=== PATIENT | female | born 1975 | race Caucasian/White ===

== ENCOUNTER → 2019-06-19 10:31 | Outpatient (CLI) | payer OTHER, SELFPAY ==
--- NOTE | 2019-06-19 10:42 | US_ITS ---
PROCEDURE: US ABDOMEN LIMITED CLINICAL INDICATION: BLOATING,ALTERED BOWEL UNCTION,ABD PAIN, NAUSEA COMPARISON: No exams were available for comparison FINDINGS: PANCREAS: Poorly demonstrated and may be better evaluated with CT if clinically desired LIVER: Fatty liver. No focal liver lesion. Appropriate direction of blood flow within the non dilated portal vein RIGHT KIDNEY: Unremarkable. Normal size and echogenicity. No hydronephrosis GALLBLADDER: No gallstones, gallbladder wall thickening, pericholecystic fluid, or biliary dilatation. IMPRESSION: 1. Unremarkable gallbladder ultrasound. 2. Fatty liver Dictated by: Beny Rojo MD 06/19/2019 12:49 Electronically signed by Beny Rojo MD in [facility] 06/19/2019 12:49
--- NOTE | 2019-06-19 10:52 | US_ITS ---
PROCEDURE: US TRANSVAGINAL CLINICAL INDICATION: RT OVARIAN CYST Right lower pelvic pain COMPARISON: No exams were available for comparison FINDINGS: Prior hysterectomy and left oophorectomy. Vaginal cuff has an unremarkable appearance. The right ovary is not clearly delineated. No obvious pelvic mass. IMPRESSION: Postsurgical changes from prior hysterectomy and left oophorectomy with nonvisualization of the right ovary. No pelvic mass or abnormal fluid collection apparent Dictated by: Beny Rojo MD 06/19/2019 12:47 Electronically signed by Beny Rojo MD in [facility] 06/19/2019 12:47
[2019-06-19 11:52] LABS: Basophils # 0.1 K/mm3 (0-0.2); Basophils % 0.7 % (0.1-2.0); Eosinophils # 0.3 K/mm3 (0.0-0.4); Eosinophils % 3.1 % (0.1-12.0); Hematocrit 45.5 % (37.0-47.0); Hemoglobin 15.3 g/dL (12.2-16.2); Lymphocytes # 2.6 K/mm3 (0.7-4.5); Lymphocytes % 27.3 % (10-50); Mean Corpuscular HGB Conc 33.6 g/dL (31.8-35.4); Mean Corpuscular Hemoglobin 31.3 pg (27.0-31.2); Mean Corpuscular Volume 93.2 fl (81-99); Mean Platelet Volume 8.4 fl (7.4-10.4); Monocytes # 0.4 K/mm3 (0.1-1.0); Monocytes % 4.7 % (1.7-9.3); Neutrophils # 6.1 K/mm3 (1.8-7.8); Neutrophils % 64.3 % (37.0-80.0); Platelet Count 351 K/mm3 (142-424); Red Blood Count 4.88 M/mm3 (4.20-5.40); Red Cell Distribution Width 12.9 % (11.5-17.5); White Blood Count 9.5 K/mm3 (4.8-10.8)
[2019-06-19 13:03] LABS: Alanine Aminotransferase 21 U/L (12-78); Albumin Level 3.7 gm/dL (3.4-5.0); Albumin/Globulin Ratio 1.2 (1.1-1.8); Alkaline Phosphatase 114 U/L (46-116); Amylase 61 U/L (25-115); Anion Gap 13.2 mEq/L (5-15); Aspartate Amino Transferase 11 U/L (15-37); Bilirubin,Total 0.4 mg/dL (0.2-1.0); Blood Urea Nitrogen 9 mg/dL (7-18); C-Reactive Protein 0.6 mg/dL (0.0-0.9); Calcium 8.7 mg/dL (8.5-10.1); Carbon Dioxide 26 mmol/L (21.0-32.0); Chloride 104 mmol/L (98-107); Creatinine,Serum 0.77 mg/dL (0.55-1.02); Estimated Glomerular Filt Rate 83 ml/min (>60); GFR (African American) 100 ML/MIN (>60); Globulin 3.1 gm/dl (1.3-3.2); Glucose 84 mg/dL (74-106); Lipase 145 u/L (73-393); Potassium 4.2 mmoL/L (3.5-5.1); Sodium 139 mmol/L (136-145); Total Protein,Serum 6.8 gm/dL (6.4-8.2)
== END ==
PROVIDERS: Visit Provider Nurse Practitioner Family
DX: R10.11 Right upper quadrant pain (principal); R19.4 Change in bowel habit; R14.0 Abdominal distension (gaseous); R11.0 Nausea; R10.84 Generalized abdominal pain; N83.201 Unspecified ovarian cyst, right side
CPT/HCPCS: 36415; 76705; 76830; 80053; 82150; 83690; 85025; 86140

== ENCOUNTER → 2019-07-01 10:06 | Outpatient (CLI) | payer OTHER, SELFPAY ==
--- NOTE | 2019-07-01 10:13 | NM_ITS ---
PROCEDURE: NM HEPATOBILIARY W PHARM CLINICAL INDICATION: ABD PAIN,NAUSEA COMPARISON: No exams were available for comparison TECHNIQUE: DOSE: 8.0 millicuries technetium 99 M Choletec administration FINDINGS: Homogeneous activity is present within the hepatic parenchyma. Activity is present in the gallbladder by 50 minutes. Activity is present in the small bowel by 10 minutes. The gallbladder ejection fraction is calculated to be 17 percent. CCK-The patient did not report pain or other symptoms during CCK infusion. IMPRESSION: No evidence of cholecystitis. Gallbladder dysfunction with abnormally low ejection fraction at 17 percent. Dictated by: Jacob Isbell 07/01/2019 12:58 Electronically signed by Jacob Isbell in [facility] 07/01/2019 12:58
--- NOTE | 2019-07-01 10:39 | HMH.ITSHM ---
Current Home Medications as stated by this patient Jyoti Eugene or employer relations representative. []NAPROXEN OCYCLOMINE INHALER
== END ==
PROVIDERS: PCP Family Medicine; Visit Provider Nurse Practitioner Family
DX: R10.11 Right upper quadrant pain (principal); R11.0 Nausea
CPT/HCPCS: 78227; A9537; J2805

== ENCOUNTER → 2019-10-14 10:39 | Outpatient (CLI) | payer OTHER, SELFPAY ==
[2019-10-14 08:42] VITALS: BMI 40.2
[2019-10-14 11:04] LABS: Basophils # 0.1 K/mm3 (0-0.2); Basophils % 1.1 % (0.1-2.0); Eosinophils # 0.3 K/mm3 (0.0-0.4); Eosinophils % 3.2 % (0.1-12.0); Hemoglobin 14.9 g/dL (12.2-16.2); Lymphocytes # 2.9 K/mm3 (0.7-4.5); Lymphocytes % 29.9 % (10-50); Mean Corpuscular HGB Conc 33.1 g/dL (31.8-35.4); Mean Corpuscular Hemoglobin 31.8 pg (27.0-31.2); Mean Corpuscular Volume 96.1 fl (81-99); Mean Platelet Volume 7.4 fl (7.4-10.4); Monocytes # 0.5 K/mm3 (0.1-1.0); Monocytes % 4.7 % (1.7-9.3); Neutrophils # 5.9 K/mm3 (1.8-7.8); Platelet Count 309 K/mm3 (142-424); Red Blood Count 4.68 M/mm3 (4.20-5.40); Red Cell Distribution Width 13.4 % (11.5-17.5); White Blood Count 9.6 K/mm3 (4.8-10.8)
[2019-10-14 13:29] LABS: Chloride 106 mmol/L (98-107); Potassium 4.3 mmoL/L (3.5-5.1); Sodium 138 mmol/L (136-145)
[2019-10-14 13:32] LABS: Alanine Aminotransferase 20 U/L (12-78); Albumin/Globulin Ratio 1.5 (1.1-1.8); Alkaline Phosphatase 97 U/L (38-126); Anion Gap 12.3 mEq/L (5-15); Aspartate Amino Transferase 21 U/L (14-36); Bilirubin,Total 0.4 mg/dl (0.2-1.3); Blood Urea Nitrogen 7 mg/dl (7-17); Carbon Dioxide 24 mmol/L (22.0-30.0); Creatinine Clearance Estimated 144 mL/min (50-200); Estimated Glomerular Filt Rate 79 ml/min (>60); GFR (African American) 95 ML/MIN (>60); Globulin 2.7 g/dL (1.3-3.2); Total Protein,Serum 6.7 g/dl (6.3-8.2)
[2019-10-14 13:33] LABS: Calcium 9.2 mg/dl (8.4-10.2); Glucose 90 mg/dl (74-100)
[2019-10-15 15:09] LABS: Covid-19 Nasal PCR Sendout Lex NOT DETECTED
== END ==
PROVIDERS: Visit Provider Surgery
DX: Z01.818 Encounter for other preprocedural examination (principal); K81.1 Chronic cholecystitis
CPT/HCPCS: 36415; 80053; 85025; U0003

== ENCOUNTER 2019-10-16 07:15 | Day surgery (SDC) | payer OTHER, SELFPAY ==
--- NOTE | 2019-10-13 13:29 | SUR.PREOP ---
10/13/19--PHONE CALL MADE TO PATIENT. PATIENT UNDERSTANDS THAT LAB WORK AND COVID TESTING NEEDS TO BE COMPLETED @ 1030 ON 10/14/19 PATIENT UNDERSTANDS IF LAB WORK AND COVID-19 TESTS ARE NOT COMPLETED BY 12PM ON THAT DATE, THE SURGERY SCHEDULED WILL BE CANCELLED AND RESCHEDULED FOR ANOTHER TIME.
[2019-10-14 14:00] VITALS: BMI 40.2
[2019-10-16] VITALS (20 sets, daily range): BP systolic 106–134; BP diastolic 61–78; PULSE 60–88; RESP 15–20; TEMP 36.6–43; O2SAT 92–100
--- NOTE | 2019-10-16 11:14 | P.PN_ITS ---
[facility] Anesthesia Checklist - Patient Identification Patient Identification: Arm Band, Verbal (Name & ) - Structural Data Admitted From: Home Planned Operative Procedure/s: Laparoscopic cholecystectomy Consent for Planned Operative Procedure(s) Verified: Yes Verified Documents: Surgical Consent, History and Physical - NPO Status Verified Time NPO: 00:00 - Chart Verification Results Verified: CBC (Covid 19 negative), BMP - Additional verifications Anesthesia Reactions: Yes (panic and anxiety upon waking) Hx Blood Transfusions: No Blood Transfusion Reaction: No - Airway Assessment C-Spine Mobility Assessed: Yes TMJ Mobility Assessed: Yes Dentition: Dentures-good fit (Removed) - Neurological Assessment Level of Consciousness: Awake, Alert, Appropriate, Follows Commands Hx Seizures: No Numbness or tingling in extremities: No - Anesthesia Plan Anesthesia Risk discussed: Yes Anesthesia Plan: Verified ASA Class: III Anesthesia Type: General [facility] History I have reviewed the patient's past medical history: Yes Medical History: Reports:: Asthma, Chronic Obstructive Pulmonary Disease (COPD), Gastroesophageal Reflux Disease(GERD), Hyperlipidemia, Hypertension, Kidney Stones, Transient Ischemic Attacks (TIA) Denies:: Cancer, Diabetes Mellitus Type 1, Diabetes Mellitus Type 2, Internal Pacemaker, MRSA, Seizures *Have you ever received a pneumonia vaccine?: Yes *Have you received a flu vaccine this season?: No Other Medical History: Reports: Arthritis, Glaucoma, Liver Disease (Fatty). Denies: Blood Transfusion Reaction Comment:: morbid obesity Anesthesia experience/problems:: Anxiety Other Surgeries: Yes: Hysterectomy-Partial, Other (vocal cord polypectomy). No: Pacemaker Amputation: No Fractures: No - *Social History Educational Level: Completed College Smoking Status: Current every day smoker Tobacco Type: cigarettes # Packs/Day (cigarettes): 1 Alcohol Intake: current Alcohol Intake Frequency:: holidays/special occasions only Substance Use Type: denies use *Occupational Status:: unemployed Housing: house Household Members: spouse, children *Travel in the last 8 weeks: None Family Hx:: Anemia, Asthma, Cancer, Coronary Artery Disease, Diabetes, Heart Attack, Hyperlipidemia, Hypertension, Stroke, Thyroid Disorder, Tuberculosis, Alcoholism, Mental illness
--- NOTE | 2019-10-16 11:41 | P.OP_ITS ---
Date of procedure: 10/16/19 Pre-op Diagnosis:: Biliary dyskinesia Post-op Diagnosis:: Same Procedure performed:: Laparoscopic cholecystectomy Surgeon:: Martin Paige MD [employer] ANALYST:: Live Zuniga Anesthesia: GETLacie Estimated blood loss (mL): 10 Operative findings:: Cystic duct and artery individually identified and clipped Operative note:: After informed consent was obtained, the patient was taken to the operating room and placed in the supine position. General anesthesia was induced and the abdomen was prepped and draped in a sterile fashion. After infiltration with local anesthetic an infraumbilical incision was made. A Veress needle was placed in position. The abdomen was insufflated. A 5 mm optical trocar was judy geronimo in position. Under direct visualization, a 12 mm trocar was placed in the subxiphoid position and 2 additional 5 mm trocars were placed in the right upper quadrant. The gallbladder was elevated up and over the liver margin. The tissue around the cystic duct was carefully dissected. 3 clips were placed proximally and the duct was transected with harmonic augie. Harmonic augie were then utilized to dissect the gallbladder away from the liver margin with careful attention to the control of the cystic artery. The gallbladder was placed in a retrieval bag and removed through the subxiphoid trocar site. The right upper quadrant was thoroughly irrigated. No active bleeding or bile leak was noted. Fascia at the subxiphoid trocar site was reapproximated utilizing the NeoClose device. The remaining trocars were removed. All wounds were irrigated and skin was closed with 4-0 Monocryl in a subcuticular fashion. Steri-Strips were applied. The patient's anesthetic agents were reversed and extubation was completed prior to transfer to recovery in stable condition. Condition: stable Disposition: PACU Specimens:: Gallbladder and contents Complications:: No immediate
--- NOTE | 2019-10-16 11:52 | HMH.ANESI ---
[facility] Anesthesia Record Part I Intake, IV Amount: 1,200 Estimated blood loss (mL): 20 Urine output (mL): 0 (NM) Blood Products used (#): none Blood Pressure: 125/78 SaO2: 94 Pulse Rate: 77 Respiratory Rate: 15 Temperature: 98.1 F Patient is:: Awake, Drowsy, Stable Stable to PACU at:: 11:48
--- NOTE | 2019-10-16 17:23 | PC.NURSE ---
1240-pt very anxious and crying at this time and requesting her at bedside, notified pre op to bring pt's to pacu per pt's request and to assist with comfort 1245-pt's at bedside, pt calming and less anxious and no longer crying, pt reports pain is easing but remains 8/10, medicated per MAR with Dilaudid 0.5mg IVP, vss, will continue to monitor 1253-pt reports pain is easing and rates 6/10, pt dozing off to sleep and appears much more comfortable and resting easy with at bedside, vss, pt stable, detailed report called to SergeRN 1255-pt transported to post op via stretcher with charbel rails up, at bedside, and left in care of JOHNATHAN Valentine with bed locked in lowest position, vss, pt stable
--- NOTE | 2019-10-16 17:39 | HMH.ANESII ---
[facility] Anesthesia Record Part II Discharge Time: 12:55 Destination: Surgical Day Care (OP Surgery) PACU nurse assessment reviewed?: Yes Patient Condition:: Good Anesthesia Complications:: None Swallowing reflex intact?: Yes Cyanosis?: No Blood Pressure: 124/72 Pulse Rate: 60 Temperature: 97.8 F Mental Status: Alert & Oriented Pain level:: 6 Nausea and/or vomitting:: None Intake, IV Amount: 0
== END 2019-10-16 13:55 | disposition home or self-care (01) ==
PROVIDERS: PCP Family Medicine; Visit Provider Surgery
PROC: 0FT44ZZ Resection of Gallbladder, Percutaneous Endoscopic Approach (ICD-10-PCS; CPT 47562; principal; 2019-10-16 08:45)
DX: K82.8 Other specified diseases of gallbladder (principal); Z79.899 Other long term (current) drug therapy; Z88.1 Allergy status to other antibiotic agents
CPT/HCPCS: 47562; 96374; J2405; J2710

== ENCOUNTER → 2020-02-18 15:49 | Outpatient (CLI) | payer OTHER, SELFPAY ==
[2020-02-20 14:40] LABS: Covid-19 Nasal PCR Sendout Lex Not Detected
== END ==
PROVIDERS: PCP Family Medicine; Visit Provider Family Medicine
DX: Z20.828 Contact with and (suspected) exposure to other viral communicable diseases (principal)
CPT/HCPCS: U0004

== ENCOUNTER → 2021-01-02 14:03 | Outpatient (POV) | payer OTHER, SELFPAY ==
[2021-01-02 15:27] LABS: Basophils # 0.1 K/mm3 (0-0.2); Basophils % 0.6 % (0.1-2.0); Eosinophils # 0.2 K/mm3 (0.0-0.4); Eosinophils % 1.8 % (0.1-12.0); Hematocrit 45.4 % (37.0-47.0); Hemoglobin 14.4 g/dL (12.2-16.2); Lymphocytes # 3.4 K/mm3 (0.7-4.5); Lymphocytes % 28.6 % (10-50); Mean Corpuscular HGB Conc 31.8 g/dL (31.8-35.4); Mean Corpuscular Hemoglobin 29.6 pg (27.0-31.2); Mean Corpuscular Volume 93.1 fl (81-99); Mean Platelet Volume 7.1 fl (7.4-10.4); Monocytes # 0.7 K/mm3 (0.1-1.0); Monocytes % 6.1 % (1.7-9.3); Neutrophils # 7.4 K/mm3 (1.8-7.8); Platelet Count 313 K/mm3 (142-424); Red Blood Count 4.88 M/mm3 (4.20-5.40); White Blood Count 11.7 K/mm3 (4.8-10.8)
[2021-01-02 16:22] LABS: Alanine Aminotransferase 18 U/L (12-78); Albumin Level 4.2 g/dl (3.5-5.0); Albumin/Globulin Ratio 1.7 (1.1-1.8); Alkaline Phosphatase 107 U/L (38-126); Amylase 96 U/L (30-110); Anion Gap 10.8 mEq/L (5-15); Aspartate Amino Transferase 21 U/L (14-36); Bilirubin,Total 0.5 mg/dl (0.2-1.3); Blood Urea Nitrogen 4 mg/dl (7-17); Calcium 9.2 mg/dl (8.4-10.2); Carbon Dioxide 28 mmol/L (22.0-30.0); Chloride 105 mmol/L (98-107); Estimated Glomerular Filt Rate 91 ml/min (>60); GFR (African American) 111 ML/MIN (>60); Globulin 2.5 g/dL (1.3-3.2); Glucose 77 mg/dl (74-100); Potassium 4.8 mmoL/L (3.5-5.1); Sodium 139 mmol/L (136-145); Total Protein,Serum 6.7 g/dl (6.3-8.2)
[2021-01-02 17:30] LABS: Lipase 646 U/L (23-300)
== END ==
PROVIDERS: Visit Provider Nurse Practitioner Family
DX: R10.11 Right upper quadrant pain (principal); R63.4 Abnormal weight loss
CPT/HCPCS: 36415; 80053; 82150; 83690; 85025

== ENCOUNTER → 2021-01-11 10:05 | Outpatient (CLI) | payer OTHER, SELFPAY ==
--- NOTE | 2021-01-11 10:13 | CT_ITS ---
PROCEDURE: CT ABDOMEN PELVIS W CON CLINICAL INDICATION: RECTAL PAIN, ABD PAIN, EPIGASTRIC PAIN COMPARISON: No exams were available for comparison TECHNIQUE: IV Contrast: 75ML Isovue 370 Oral Contrast None Axial images obtained with sagittal and coronal reformats. All CT scans at the facility use one or more dose reduction, viz: automated exposure control, ma/kV adjustment per patient size (including targeted exams where dose is matched to indication, i.e. head), or iterative reconstruction technique. FINDINGS: LOWER THORAX: No acute finding ABDOMEN & PELVIS: The liver, spleen, adrenal glands, and pancreas have an unremarkable appearance. Prior cholecystectomy There are nonobstructing left renal calculi in the mid to lower pole measuring 4 and 5 mm. No ureteral calculi. There are few small periportal and retroperitoneal lymph nodes which are nonspecific. No intestinal obstruction or free air. No evidence of appendicitis. No evidence of diverticulitis. There has been a prior hysterectomy. No perirectal abscess or obvious mass. 13 mm cystic area is noted in the right pelvic region consistent with an ovarian cyst. No pelvic fluid collection apparent There is a small ventral abdominal wall hernia containing fat 4-5 cm cephalad to the umbilicus. No acute bony findings. There is prominent facet hypertrophic change on the right at L5-S1 with right-sided foraminal narrowing. IMPRESSION: 1. No acute abdominal or pelvic findings. 2. Nonobstructing left nephrolithiasis. 3. Small ventral abdominal wall hernia 45 cm cephalad to the umbilicus containing fat Dictated by: Beny Rojo MD 01/11/2021 13:30 Beny Rojo MD in [facility] 01/11/2021 13:30
== END ==
PROVIDERS: PCP Family Medicine; Visit Provider Nurse Practitioner Family
DX: R10.11 Right upper quadrant pain (principal); R10.13 Epigastric pain; K62.89 Other specified diseases of anus and rectum; R63.4 Abnormal weight loss; R14.0 Abdominal distension (gaseous); R11.0 Nausea; R63.0 Anorexia; R15.2 Fecal urgency; R19.7 Diarrhea, unspecified
CPT/HCPCS: 74177; Q9967

== ENCOUNTER → 2021-02-17 09:43 | Outpatient (CLI) | payer OTHER, SELFPAY | PROVIDERS: Visit Provider Internal Medicine Gastroenterology | DX: Z01.812 Encounter for preprocedural laboratory examination (principal); Z11.52 Encounter for screening for COVID-19; Z13.810 Encounter for screening for upper gastrointestinal disorder | CPT/HCPCS: U0003 ==

== ENCOUNTER 2021-02-20 10:57 | Day surgery (SDC) | payer OTHER, SELFPAY ==
[2021-02-16 10:11] VITALS: BMI 36.6
[2021-02-20 11:32] VITALS: BP 129/64; PULSE 69; RESP 18; TEMP 36.4; O2SAT 97
--- NOTE | 2021-02-20 12:35 | P.PN_ITS ---
[facility] Anesthesia Checklist - Patient Identification Patient Identification: Arm Band - Structural Data Admitted From: Home Planned Operative Procedure/s: egd Consent for Planned Operative Procedure(s) Verified: Yes Verified Documents: Surgical Consent, History and Physical - NPO Status Verified Time NPO: 00:00 - Additional verifications Anesthesia Reactions: Yes (panic and anxiety upon waking) Hx Blood Transfusions: No Blood Transfusion Reaction: No - Airway Assessment C-Spine Mobility Assessed: Yes (mp2) TMJ Mobility Assessed: Yes Dentition: Edentulous - Neurological Assessment Level of Consciousness: Awake, Alert - Anesthesia Plan Anesthesia Risk discussed: Yes Anesthesia Plan: Verified ASA Class: III Anesthesia Type: MAC [facility] History I have reviewed the patient's past medical history: Yes Medical History: Reports:: Asthma, Chronic Obstructive Pulmonary Disease (COPD), Gastroesophageal Reflux Disease(GERD), Hyperlipidemia, Hypertension, Kidney Stones, Transient Ischemic Attacks (TIA) Denies:: Cancer, Diabetes Mellitus Type 1, Diabetes Mellitus Type 2, Internal Pacemaker, MRSA, Seizures *Have you ever received a pneumonia vaccine?: No *Have you received a flu vaccine this season?: No Other Medical History: Reports: Arthritis, Glaucoma, Liver Disease. Denies: Blood Transfusion Reaction Anesthesia experience/problems:: nac Other Surgeries: Yes: Cholecystectomy, Hysterectomy-Total, Hysterectomy-Partial, Other (vocal cord polypectomy). No: Pacemaker Amputation: No Fractures: No - *Social History Last grade of school completed: High school graduate Smoking Status: Current every day smoker Tobacco Type: cigarettes # Packs/Day (cigarettes): 1 Alcohol Intake: current Alcohol Intake Frequency:: holidays/special occasions only Substance Use Type: denies use *Occupational Status:: unemployed Housing: house Household Members: spouse *Travel in the last 8 weeks: None Family Hx:: Cancer, Coronary Artery Disease
--- NOTE | 2021-02-20 12:46 | P.PCN_ITS ---
[facility] Procedure Note Procedure Note:: Upper Endoscopy Procedure Report: Esophagogastroduodenoscopy with cold biopsies Endoscopost: Xander Cavazos II, MD Referring Physician: Chapo Palencia MD Date of Procedure: February 20, 2021 Equipment: Olympus GIF 190 standard upper endoscope Sedation: MAC sedation Indications: Mrs. Reynoso is a 45-year-old female with chronic functional dyspepsia and irritable bowel syndrome. She does have a history of inflammatory bowel disease (ulcerative colitis/Crohn's disease) which was diagnosed in 2000. She is not on any maintenance of remission therapy. She did have a colonoscopy approximately 1 year ago with [facility] (in [place]) and there was no evidence of any active IBD. She does have chronic right upper quadrant abdominal pain. She did have a prior normal ultrasound of the gallbladder. Her HIDA scan showed an ejection fraction of 17%. Because of her nonfunctioning gallbladder she had cholecystectomy in October 2019 (Dr. Martin Paige M.D.). She continues to have right upper quadrant abdominal pain. She has lost 46 pounds in the last few months. She has moderate bloating. She has some chronic back pain. She has had significant diarrhea with bowel urgency and frequency. She does have some fecal incontinence. Procedure: Prior to the procedure, a history and physical exam was performed, and patient's medications and allergies were reviewed. The risks, benefits and alternatives of the sedation and procedure were discussed with the patient. All questions were answered and informed consent was obtained. The patient was brought to the procedure room. Patient identification and proposed procedure were verified by the physician and the nurse. The patient was placed in a left lateral decubitus position and the scope was passed under direct vision. Throughout the procedure, the patient's blood pressure, pulse, and oxygen saturations were monitored continuously. The upper GI endoscopy was accomplished without difficulty. The patient tolerated the procedure well. Findings: The scope was passed directly into the upper esophagus and advanced to the third portion of the duodenum. The post bulbar duodenum and duodenal bulb were normal with normal mucosa and conniventes. Cold biopsies were taken from the post bulbar duodenum to rule out celiac disease. The scope was withdrawn through a normal duodenal bulb and pylorus into the stomach. There was mild pylorospasm. There was some linear reactive gastropathy of the antrum of the stomach. There was bile reflux. The remainder of the body and fundus of the stomach were grossly normal. Upon retroflexion there was a small sliding 1 to 2 cm hiatal hernia. 2 biopsies were taken in the antrum and along the lesser curvature for histology to rule out gastritis and/or H pylori. The scope was then withdrawn into the esophagus. There was a serrated Z-line. Biopsies were taken at the GE junction. There was no evidence of reflux esophagitis or Hernández's. There was no Schatzki's ring. The remainder of the esophageal mucosa was normal. Impression: 1. Nonerosive GERD with mild esophageal dysmotility and very small sliding 1 to 2 cm hiatal hernia 2. Bile reflux with mild linear reactive gastropathy and mild pylorospasm Plan: I will follow-up the biopsies. The patient does have some chronic functional intestinal pain/functional intestinal disorder. We will discuss treatment options. It is possible that she has hepatic flexure syndrome versus sphincter of Oddi dysfunction. I also feel that she has some sacral nerve dysfunction with loss of bowel control.
[2021-02-20 12:50] VITALS: BP 110/70; PULSE 74; RESP 18; TEMP 36.6; O2SAT 93
[2021-02-20 13:00] VITALS: BP 118/75; PULSE 68; RESP 18; O2SAT 97; O2SAT 99
[2021-02-20 13:10] VITALS: BP 109/69; PULSE 62; RESP 18; O2SAT 96
[2021-02-20 13:42] VITALS: BP 129/88; PULSE 62; RESP 18; O2SAT 99
== END 2021-02-20 13:55 | disposition home or self-care (01) ==
LOC: OUTP 10:58
PROVIDERS: PCP Family Medicine; Visit Provider Internal Medicine Gastroenterology
PROC: 0DJ08ZZ Inspection of Upper Intestinal Tract, Via Natural or Artificial Opening Endoscopic (ICD-10-PCS; CPT 43235; principal; 2021-02-20 12:00)
DX: K21.9 Gastro-esophageal reflux disease without esophagitis (principal); K22.4 Dyskinesia of esophagus; K44.9 Diaphragmatic hernia without obstruction or gangrene; K31.9 Disease of stomach and duodenum, unspecified; K31.3 Pylorospasm, not elsewhere classified; K58.9 Irritable bowel syndrome, unspecified; K50.90 Crohn's disease, unspecified, without complications; Z90.49 Acquired absence of other specified parts of digestive tract; J44.9 Chronic obstructive pulmonary disease, unspecified; E78.5 Hyperlipidemia, unspecified; I10 Essential (primary) hypertension; Z86.73 Personal history of transient ischemic attack (TIA), and cerebral infarction without residual deficits
CPT/HCPCS: 43239

== ENCOUNTER → 2021-03-14 12:15 | Outpatient (CLI) | payer OTHER, SELFPAY ==
--- NOTE | 2021-03-14 12:22 | XR_ITS ---
PROCEDURE: XR CERVICAL SPINE 5V CLINICAL INDICATION: WEAKNESS OF RT UPPER EXTREMITY COMPARISON: No exams were available for comparison FINDINGS: There is slight reversal cervical lordosis which may be due to patient positioning or muscle spasm. There is normal alignment. No acute fracture or dislocation is evident. No lytic or blastic change. No cervical rib. There is minimal foraminal narrowing on the right at C3-C4 and C2-C3. IMPRESSION: Slight reversal of lordosis with mild right foraminal narrowing at C2-C3 and C3-C4 otherwise negative. Dictated by: Beny Rojo MD 03/14/2021 16:58 Beny Rojo MD in [facility] 03/14/2021 16:58
== END ==
PROVIDERS: PCP Family Medicine; Visit Provider Family Medicine
DX: R29.898 Other symptoms and signs involving the musculoskeletal system (principal)
CPT/HCPCS: 72050

== ENCOUNTER → 2021-04-06 17:31 | Outpatient (CLI) | payer OTHER, SELFPAY ==
[2021-04-06 19:50] LABS: Thyroid Stimulating Hormone 2.53 uIU/mL (0.465-4.68)
[2021-04-06 20:08] LABS: Vitamin B12 362 pg/mL (239-931)
== END ==
PROVIDERS: Visit Provider Specialist
DX: R41.3 Other amnesia (principal)
CPT/HCPCS: 36415; 82607; 84443

== ENCOUNTER → 2021-04-18 15:11 | Outpatient (CLI) | payer OTHER, SELFPAY ==
--- NOTE | 2021-04-18 15:11 | MR_ITS ---
PROCEDURE: MR HEAD/BRAIN WO CON CLINICAL INDICATION: Mental fogginess, short-term memory impairment COMPARISON: No exams were available for comparison TECHNIQUE: Routine multiplanar multi echo sequences are performed without gadolinium enhancement. FINDINGS: No midline shift, mass effect, intracranial hemorrhage, or hydrocephalus is evident. The no evidence of acute infarction. The cerebellopontine angles, cerebellum, brainstem and mid brain have an unremarkable appearance. The pituitary, optic chiasm, corpus callosum, and craniocervical junction have an unremarkable appearance. No mastoid effusion. Mild mucosal thickening of the ethmoid and maxillary sinuses. A subcutaneous nodule is present in the right occipital region of the scalp measuring approximately 16 by 10 mm hypointense on T1 and T2 . Please correlate with physical exam. IMPRESSION: No acute intracranial findings. Well-circumscribed subcutaneous nodule right occipital region of the scalp etiology indeterminate. Please correlate with physical exam. Dictated by: Beny Rojo MD 04/20/2021 07:17 Beny Rojo MD in [facility] 04/20/2021 07:17
--- NOTE | 2021-04-18 15:11 | MR_ITS ---
PROCEDURE: MR LUMBAR SPINE WO CON CLINICAL INDICATION: lower back pain with radicular component COMPARISON: CT CT ABDOMEN PELVIS W CON from 01/11/2021 CR XR CERVICAL SPINE 5V from 03/14/2021 TECHNIQUE: Standard multiplanar multiecho sequences are performed without contrast. 3-D MIP and myelographic images are also rendered and reviewed FINDINGS: There is normal alignment.. There are only 4 lumbar vertebra. The spinal cord ends at the T12-L1 level. T12-L1: Unremarkable. L1-L2: Mild facet hypertrophic change. L2-L3: Mild facet hypertrophic change. L3-L4: Minimal left foraminal and lateral disc protrusion causing mild foraminal narrowing on the left. Mild disc desiccation. Facet ligamentum hypertrophy L4-5: 2 mm anterolisthesis of L4 with concentric bulging disc along with facet and ligamentum hypertrophic change.. There is mild bilateral foraminal narrowing right slightly greater than left. No extruded herniated disc or bony canal stenosis. IMPRESSION: Mild lumbar spondylosis as described above. L3-L4: Minimal left foraminal and lateral disc protrusion causing mild foraminal narrowing on the left. Mild disc desiccation. Facet ligamentum hypertrophy L4-5: 2 mm anterolisthesis of L4 with concentric bulging disc along with facet and ligamentum hypertrophic change.. There is mild bilateral foraminal narrowing right slightly greater than left. No extruded herniated disc. Only 4 lumbar vertebra. Please take is into account if any intervention is considered. Dictated by: Beny Rojo MD 04/19/2021 10:50 Beny Rojo MD in [facility] 04/19/2021 10:50
== END ==
PROVIDERS: PCP Family Medicine; Visit Provider Specialist
DX: R41.3 Other amnesia (principal); M47.27 Other spondylosis with radiculopathy, lumbosacral region
CPT/HCPCS: 70551; 72148; 76376

== ENCOUNTER → 2021-05-18 09:03 | Outpatient (CLI) | payer OTHER, SELFPAY ==
--- NOTE | 2021-05-18 09:08 | XR_ITS ---
PROCEDURE: XR LUMBAR SPINE 2-3V CLINICAL INDICATION: severe back pain COMPARISON: No exams were available for comparison FINDINGS: Minimal lumbar curvature convex left. 7 mm stone overlying the mid aspect of the left kidney. Severe facet hypertrophic changes are present on the right at L4-L5. No fracture or dislocation. No lytic or blastic change. Hypertrophic changes are also present involving the SI joints inferiorly left greater than right. The disc spaces are well preserved. There is normal alignment. IMPRESSION: Mild lumbar scoliosis with severe facet hypertrophic change on the right at L4-5 Left nephrolithiasis Dictated by: Beny Rojo MD 05/18/2021 17:02 Beny Rojo MD in [facility] 05/18/2021 17:02
== END ==
PROVIDERS: PCP Family Medicine; Visit Provider Specialist
DX: M54.9 Dorsalgia, unspecified (principal); M54.50 Low back pain, unspecified
CPT/HCPCS: 72100

== ENCOUNTER → 2021-05-22 11:08 | Outpatient (CLI) | payer OTHER, SELFPAY ==
[2021-05-22 11:53] LABS: Basophils # 0.1 K/mm3 (0-0.2); Basophils % 0.6 % (0.1-2.0); Eosinophils # 0.2 K/mm3 (0.0-0.4); Eosinophils % 1.2 % (0.1-12.0); Hematocrit 48.2 % (37.0-47.0); Hemoglobin 15.9 g/dL (12.2-16.2); Lymphocytes # 5.4 K/mm3 (0.7-4.5); Lymphocytes % 29.3 % (10-50); Mean Corpuscular Hemoglobin 31.5 pg (27.0-31.2); Mean Corpuscular Volume 95.5 fl (81-99); Mean Platelet Volume 7.3 fl (7.4-10.4); Monocytes # 1.2 K/mm3 (0.1-1.0); Monocytes % 6.5 % (1.7-9.3); Neutrophils # 11.5 K/mm3 (1.8-7.8); Neutrophils % 62.5 % (37.0-80.0); Platelet Count 369 K/mm3 (142-424); Red Blood Count 5.05 M/mm3 (4.20-5.40); Red Cell Distribution Width 13.2 % (11.5-17.5); White Blood Count 18.4 K/mm3 (4.8-10.8)
[2021-05-22 12:01] LABS: MANUAL DIFFERENTIAL MANUAL DIFFERENTIAL (MANUAL DIFF)
[2021-05-22 12:31] LABS: Lymphocytes % 26 % (10-50); Monocytes % 10 % (2-9); Neutrophils % 63 % (42-76); RBC Morphology Normal; Total Cells Counted 100
[2021-05-22 12:32] LABS: Platelet Estimate Normal
[2021-05-22 12:58] LABS: Alanine Aminotransferase 15 U/L (12-78); Albumin Level 4.3 g/dl (3.5-5.0); Albumin/Globulin Ratio 1.7 (1.1-1.8); Alkaline Phosphatase 106 U/L (38-126); Anion Gap 12.1 mEq/L (5-15); Aspartate Amino Transferase 17 U/L (14-36); Blood Urea Nitrogen 11 mg/dl (7-17); Calcium 9.4 mg/dl (8.4-10.2); Carbon Dioxide 29 mmol/L (22.0-30.0); Chloride 100 mmol/L (98-107); Chol/HDL Ratio 3.2 (1-3.5); Cholesterol 158 mg/dl (140-200); Estimated Glomerular Filt Rate 91 ml/min (>60); GFR (African American) 111 ML/MIN (>60); Globulin 2.6 g/dL (1.3-3.2); Glucose 83 mg/dl (74-100); HDL Cholesterol 49 mg/dl (40-60); Potassium 4.1 mmoL/L (3.5-5.1); Sodium 137 mmol/L (136-145); Total Protein,Serum 6.9 g/dl (6.3-8.2); Triglycerides 289 mg/dl (30-150); VLDL Cholesterol 58 mg/dL (0-40)
[2021-05-22 13:02] LABS: Bilirubin,Total 0.1 mg/dl (0.2-1.3)
[2021-05-22 13:09] LABS: Direct LDL Cholesterol 79.76 mg/dL (100-129)
== END ==
PROVIDERS: PCP Family Medicine; Visit Provider Specialist
DX: G47.30 Sleep apnea, unspecified (principal)
CPT/HCPCS: 36415; 80053; 80061; 85007; 85025; 93225; 93226; 95806

== ENCOUNTER → 2021-05-23 10:40 | Outpatient (CLI) | payer OTHER, SELFPAY ==
--- NOTE | 2021-05-23 10:41 | CA_ITS ---
APPROVED REPORT EXAM: Comprehensive 2D, Doppler, and color-flow Echocardiogram Rn Research: Azul Gutierrez, IQRA, RVS Ht: 5 ft 2 in Wt: 196lbs BSA: 1.90 BP: 140/84 mmHg Indications: TIA, COPD, HTN, HLD, Family Hx-HD, Smoker 2D Dimensions Left Atrium 2.95 cm LA Volume 42.40 mL LVOT 1.82 cm (M/F) 1.5-2.5 LA Volume Index 22.30 mL/m2 (M/F) 16-34 M-Mode Dimensions RVDd 2.36 cm (0.9-2.6) LA Diam 3.53 cm (1.9-4.0) LVDd 4.28 cm (3.5-5.7) Ao Diam 2.84 cm (2.0-3.7) LVDs 2.88 cm (3.5-5.7) IVSd 1.21 cm (0.6-1.1) PWd 0.96 cm (0.6-1.1) EF (Teich) 63.50% EPSs 0.69 cm FS 34.20% EDV (Teich) 86.80 mL TAPSE 2.14 (<1.7) ESV (Teich) 31.70 mL LV Diastology E Decel Time 297.00 (160-240 msec) E/A Ratio 1.87 MED E' 10.80 (< 7 cm/sec) MED A' 9.30 cm/s E'/MED E' Ratio 8.07 (>14) LAT E' 12.20 (<10 cm/sec) LAT A' 9.20 cm/s E/LAT E' Ratio 7.15 (>14) Pulm Vein s 44.00 cm/sec Aortic Valve LVOT Max 114.00 (70-110 cm/s) LVOT VTI 23.48 cm AoV Peak Reynaldo. 134.00 (50-130 cm/s) AO Peak GR. 7.20 mmHg AO Mean GR. 4.00 (<5 mmHg) AO VTI 30.81 (18-25 cm) MIMI (VTI) 1.98 (2.5-4.5 cm2) Mitral Valve MV A Velocity 47.00 (40-130 cm/s) E/A Ratio 1.87 MV Decel. Time 297.00 (160-240 ms) MV Mean Gr. 1.80 (<2mmHg) Pulmonary Valve PV Peak Velocity 62.00 (50-150 cm/s) TN End VMAX 63.00 cm/s Tricuspid Valve TR P. Velocity 231.00 cm/s RAP Estimate 10.00 mmHg RVSP 31.30 mmHg Left Ventricle Left atrium normal size, left ventricle is normal size, there is no concentric left ventricular hypertrophy, visually estimated ejection fraction 55% with no regional wall motion abnormality, diastolic parameters are within normal range. Right Ventricle Right atrium and right ventricle are normal size and contractility. Aortic Valve Aortic valve is minimally thickened and fibrosed, there is no aortic stenosis or aortic insufficiency. Mitral Valve Mitral valve is grossly normal, there is trace mitral regurgitation Tricuspid Valve Tricuspid valve grossly normal, there is trace tricuspid regurgitation, tricuspid regurgitation jet velocity is inadequate for calculation of the right ventricular systolic pressure. Pulmonic Valve Pulmonic valve is poorly visualized. Great Vessels Aortic root is normal size. Inferior vena cava normal size with normal inspiratory collapse. Pericardium No significant pericardial effusion. Conclusion #1. Normal left ventricular size, preserved left ventricular systolic function, visually estimated ejection fraction 55% with no regional wall motion abnormality, diastolic parameters are within normal range. #2. Trace mitral and tricuspid regurgitation. #3. No significant pericardial effusion noted. #4. Inferior vena cava normal size with normal inspiratory collapse. Electronically signed by : Сергей Pendleton MD 05/23/2021 19:36:39
== END ==
PROVIDERS: PCP Family Medicine; Visit Provider Specialist
DX: R06.09 Other forms of dyspnea (principal); R20.0 Anesthesia of skin; R53.1 Weakness; Z86.73 Personal history of transient ischemic attack (TIA), and cerebral infarction without residual deficits
CPT/HCPCS: 93306

== ENCOUNTER → 2021-06-05 14:07 | Outpatient (POV) | payer OTHER, SELFPAY ==
[2021-06-05 14:27] VITALS: BP 121/70; PULSE 76; RESP 20; TEMP 36.7; O2SAT 97; BMI 35.1
--- NOTE | 2021-06-05 14:31 | HMH.PMCON ---
Assessment and Plan (1) Degenerative disc disease, lumbar Status: Acute Category: Medical Code(s): M51.36 - Other intervertebral disc degeneration, lumbar region (2) Paget's disease of cervical spine Status: Acute Category: Medical Code(s): M88.88 - Osteitis deformans of other bones (3) Lumbar radiculopathy Status: Acute Category: Medical Code(s): M54.16 - Radiculopathy, lumbar region (4) Cervical radiculopathy Status: Acute Category: Medical Code(s): M54.12 - Radiculopathy, cervical region - Assessment and plan all Dx Assessment and Plan for all problems:: I discussed with the patient that she should seek evaluation with neurosurgery due to her chronic pain symptoms associated with bowel and bladder incontinence as this may be related to neurogenic bowel and bladder potentially require surgery although there is no canal stenosis appreciated on her lumbar MRI. If neurosurgery recommends against acute surgical intervention I believe she will benefit from a lumbar epidural steroid injection under fluoroscopy at L4-L5 #1. Furthermore, I believe she will benefit from an MRI of her cervical spine to evaluate for cervical radiculopathy and she may potentially benefit from a cervical epidural steroid injection under fluoroscopy C7-T1 #1 in the future. However, because her low back pain is so severe at this point I believe she will not tolerate undergoing an MRI of the cervical spine at this time. We will follow-up with this patient in 1 month for reassessment and we will develop a treatment plan after neurosurgical evaluation. HPI - Data of Consult Consult date: 06/05/21 Requesting Physician: Capri Briceno APRN - Consult Narrative Reason for consult: Chronic neck and back pain History of present illness: Ms. Reynoso is a 45 year old female presents for initial consultation for chronic neck and back pain. He was referred to our clinic by Dr. Coker with neurology. She states that she has been experiencing this pain for many years now and is gradually worsening over time. She states that her chronic low back pain is hurting her more than the neck pain. In regards to the chronic low back pain, she states that it started many years ago and is gradually worsened over time. She denies any inciting factors such as any injury or trauma precipitating this pain. She describes the pain as a dull aching pain at baseline with sharp shooting lacerations. She also notes radiation of pain to her legs. She states the pain is constant in nature and is so severe that it is affecting her sleep. She states that the pain is worse with certain activities including movement. She denies any alleviating factors. She rates the pain as a 10 out of 10 today. She has tried [id number]-ptjelmc pain medications without any pain relief. Note, the patient states that she recently was diagnosed with a TIA 2 weeks ago. She also notes bowel and bladder incontinence as well as saddle anesthesia symptoms. In regards to her neck pain, she states that she has been experiencing symptoms for some time now that is gradually worsening in nature. She describes the pain as a dull aching pain at baseline with chronic sharp shooting exacerbations. The denies any alleviating or exacerbating factors in regards to her neck pain. She notes that the pain radiates into her arms and also is associated with numbness and tingling in her fingers that is primarily worse in her first and second digits. She rates her neck pain as an 8 out of 10 and she has tried and failed conservative treatment getting oral pain medications and home stretching program for greater than 6 weeks. She has been referred to neurosurgery for surgical evaluation as well and states that her appointment is scheduled at the end of June 2021. She recently had an MRI of the lumbar spine that demonstrated multilevel degenerative changes including mild facet hypertrophy at L1-L2, L2-L3, L3-L4 and L4-L5.
== END ==
PROVIDERS: Visit Provider Family Medicine
DX: M51.16 Intervertebral disc disorders with radiculopathy, lumbar region (principal); M88.88 Osteitis deformans of other bones; M54.12 Radiculopathy, cervical region
CPT/HCPCS: 99202; G0463

== ENCOUNTER → 2021-08-07 11:53 | Outpatient (POV) | payer OTHER, SELFPAY ==
[2021-08-07 12:20] VITALS: BP 150/95; PULSE 73; RESP 20; TEMP 36.7; O2SAT 97; BMI 35.4
--- NOTE | 2021-08-12 14:32 | HMH.PAINSOAP ---
[facility] Pain Management SOAP Note Subjective:: This patient is a very pleasant 46 year old white female who presents today for follow up. She is currently being treated for DDD of the lumbar spine with lumbar radiculopathy. In addition to her chronic low back pain she also has a history of bowel and bladder incontinence and was referred to neurosurgery for further evaluation. She recently was evaluated by neurosurgery who recommended against any acute surgical interventions at this time. In the past we recommended a lumbar epidural steroid injection under fluoroscopy at L4-L5 #1 for her chronic low back and leg symptoms. We also recommended ordering an MRI of the cervical spine for further evaluation in the future to determine whether she would benefit from a cervical epidural steroid injection for her chronic neck and arm pain. She is not on any controlled substances per Kirt report. She rates her pain today as a 6 out of 10. Objective:: General: Alert and oriented x3, no acute distress, pleasant and cooperative Lungs: Resps E/U, symmetric chest expansion Eyes: PERRL Musculoskeletal: limited flexion and extension of the lumbar spine secondary to pain. Deep tendon reflexes were normal in bilateral lower extremities. Motor exam was grossly intact in the bilateral lower extremities, antalgic gait noted. Positive straight leg raise on the right Neurological: Speech is clear, cashier self service gasoline equal, no gross sensory deficits Assessment:: Degenerative disc disease of lumbar spine with lumbar radiculopathy Degenerative disease of the cervical spine with cervical radiculopathy Plan:: I discussed with the patient that we will schedule her for a lumbar epidural steroid injection under fluoroscopy at L4-L5 #1. We also discussed ordering an MRI of the cervical spine in the future for further evaluation of her chronic neck and arm pain. She may benefit from a cervical epidural steroid injection at C7-T1 #1 in the future for her chronic neck and arm pain. Kirt and prior drug screens were reviewed and appropriate. [facility] History Medical History: Reports:: Anxiety, Asthma, Chronic Obstructive Pulmonary Disease (COPD), Gastroesophageal Reflux Disease(GERD), Hyperlipidemia, Hypertension, Kidney Stones, Transient Ischemic Attacks (TIA) Denies:: Cancer, Diabetes Mellitus Type 1, Diabetes Mellitus Type 2, Internal Pacemaker, MRSA, Seizures *Have you ever received a pneumonia vaccine?: No *Have you received a flu vaccine this season?: Yes Other Medical History: Reports: Arthritis, Glaucoma, Liver Disease. Denies: Blood Transfusion Reaction Other Surgeries: Yes: Cholecystectomy, Colonoscopy, EGD, Hysterectomy-Total, Hysterectomy-Partial, Other (vocal cord polypectomy). No: Pacemaker Amputation: No Fractures: No - *Social History Smoking Status: Current every day smoker Tobacco Type: cigarettes # Packs/Day (cigarettes): 1 Alcohol Intake: never Alcohol Intake Frequency:: holidays/special occasions only Substance Use Type: denies use *Occupational Status:: other Housing: house Household Members: spouse *Travel in the last 8 weeks: None - Psychiatric History Pschychiatric History:: Reports:: Anxiety Family Hx:: Cancer, Coronary Artery Disease
== END ==
PROVIDERS: Visit Provider Anesthesiology Pain Medicine
DX: M51.16 Intervertebral disc disorders with radiculopathy, lumbar region (principal); M50.10 Cervical disc disorder with radiculopathy, unspecified cervical region
CPT/HCPCS: 99212; G0463

== ENCOUNTER 2021-08-18 09:55 | Day surgery (SDC) | payer OTHER, SELFPAY ==
[2021-08-18 09:59] VITALS: BP 138/84; BP 139/88; PULSE 80; PULSE 87; RESP 18; RESP 20; O2SAT 94; O2SAT 98
[2021-08-18 10:12] VITALS: BP 120/80; PULSE 88; RESP 18; TEMP 36.7; O2SAT 88; BMI 35.4
--- NOTE | 2021-08-18 10:37 | HMH.PMPROC ---
- Procedure Date: 08/18/21 Time: 10:37 Anesthesiologist:: Hoang Bobo MD Complications:: None Pre-procedure Diagnosis:: Sacroiliitis Post-procedure Diagnosis:: Same Indications for Procedure:: Patient is a pleasant 46-year-old white female who we are treating for bilateral hip pain. She is tender over both SI joints. She does have a positive Dipak's test bilaterally. She is positive Sergo test bilaterally. She is positive SI joint compression test bilaterally. We will plan on bilateral SI joint injections under fluoroscopy today to help with her pain symptoms. Procedure Details:: B/L SI joint injection under fluoroscopy Informed consent was obtained and the risks and benefits of the procedure was explained to the patient. The patient was taken to the procedure room and placed prone on the procedure table. The patient was prepped using ChloraPrep. The skin and subcutaneous tissues overlying the SI joints were anesthetized using lidocaine. I placed a 22-gauge needle first in the left SI joint and second in the right SI joint. Needle placement was confirmed with dye. After this we injected 5 mL bupivacaine 0.25% and Depo-Medrol 40 mg into each SI joint. Patient tolerated the procedure well with no complication. Plan and Disposition:: We will follow-up with her in 2 weeks. Will reevaluate symptoms at that time.
[2021-08-18 10:42] VITALS: BP 143/82; PULSE 81; RESP 20; O2SAT 94
== END 2021-08-18 10:43 | disposition home or self-care (01) ==
LOC: SC.PAINP 09:56
PROVIDERS: PCP Family Medicine; Visit Provider Anesthesiology
DX: M46.1 Sacroiliitis, not elsewhere classified (principal); J44.9 Chronic obstructive pulmonary disease, unspecified; K21.9 Gastro-esophageal reflux disease without esophagitis; Z72.0 Tobacco use; Z86.73 Personal history of transient ischemic attack (TIA), and cerebral infarction without residual deficits; Z88.0 Allergy status to penicillin; Z88.2 Allergy status to sulfonamides
CPT/HCPCS: 27096; G0260; J1040; Q9966

== ENCOUNTER → 2021-10-12 10:11 | Outpatient (POV) | payer OTHER, SELFPAY ==
[2021-10-12 10:18] VITALS: BP 153/93; PULSE 98; RESP 18; TEMP 36.7; O2SAT 96; BMI 35.4
--- NOTE | 2021-10-12 10:59 | HMH.PAINSOAP ---
[facility] Pain Management SOAP Note Subjective:: Patient is a pleasant 46-year-old female who presents today for follow-up. Patient had a bilateral SI injections on August 18, 2021. We are currently treating this patient for bilateral sacroiliitis. After her procedure, patient had 2 to 3 days of significant relief about 80 to 90%. We have not seen this patient since her injection. Today, patient states that she has been having a lot of pain on her bilateral hips especially on her right side. She says that she had a lot of pain during her injection and is a bit hesitant in doing a repeat injection. She rates her pain today as 10 out of 10. Denies any recent falls or traumas. Denies any loss of bowel or bladder functions. She does not have any scheduled medications. She says that she cannot take any anti-inflammatory medications because she has gastroparesis as a result of her chronic pancreatitis. She was given a Medrol Dosepak in May that seem to have helped her pain then. Review of Systems: General: No recent weight changes, no fever, no sleep disturbances Respiratory: No cough, no shortness of air, no recurring pulmonary infections Cardiovascular/peripheral vascular: No chest pain, no palpitations, no edema, no shortness of breath Gastrointestinal: No new onset incontinence, normal bowel movements reported Genitourinary: No new onset incontinence Musculoskeletal: Bilateral hip pain Psychiatric: [Normal mood/affect] Neurological: [Denies weakness in extremities], [denies balance issues] Objective:: Physical Exam: General: Alert and oriented x3, no acute distress, pleasant and cooperative Lungs: Respirations even and unlabored, symmetrical chest expansion Eyes: PERRL Musculoskeletal: Bilateral SI are positive for KRISTIN, Popeye's, [place]'s, [place]'s, compression, and distraction. Patient is also very tender to palpation around her right greater trochanteric bursa. Neurological: Speech clear, no gross sensory deficit Assessment:: Bilateral sacroiliitis, right greater trochanteric bursitis Plan:: Patient had significant relief for 3 days after her bilateral SI injection 2 months ago. She presents today with worsening pain. She takes [id number]-yvcqygo medication for pain. I discussed with her that he will be beneficial to do a repeat SI injection. She says that she had a terrible experience last time and it only provided temporary relief. I discussed with the patient that we can start her with a week worth of oral steroids to decrease some of her inflammation then we can schedule her for an SI injection. Patient is agreeable with this plan. We will schedule the patient for a right SI injection and right greater trochanteric bursa injection. Risks and benefits of the procedure have been explained to the patient. Patient would like to proceed with the procedure. I will start the patient on prednisone 20 mg twice a day for 5 days. I will also start the patient on a compounding cream. I will refill the patient's lidocaine patches. Patient wants to be referred to orthopedics for further evaluation of bilateral hip osteoarthritis. Patient has been instructed to contact the clinic with any concerns before the next appointment. Dr. Bobo has reviewed this note and agrees with this plan of care. This note was dictated using voice recognition software and make contain errors or omissions. [facility] History Medical History: Reports:: Anxiety, Asthma, Chronic Obstructive Pulmonary Disease (COPD), Gastroesophageal Reflux Disease(GERD), Hyperlipidemia, Hypertension, Kidney Stones, Transient Ischemic Attacks (TIA) Denies:: Cancer, Diabetes Mellitus Type 1, Diabetes Mellitus Type 2, Internal Pacemaker, MRSA, Seizures *Have you ever received a pneumonia vaccine?: No *Have you received a flu vaccine this season?: Yes Other Medical History: Reports: Arthritis, Glaucoma, Liver Disease. Denies: Blood Transfusion Reaction Other Surgeries: Yes: Kory
== END ==
PROVIDERS: Visit Provider Student in an Organized Health Care Education/Training Program
DX: M46.1 Sacroiliitis, not elsewhere classified (principal); M70.61 Trochanteric bursitis, right hip
CPT/HCPCS: 99212; G0463

== ENCOUNTER → 2021-10-25 13:14 | Outpatient (CLI) | payer OTHER, SELFPAY ==
--- NOTE | 2021-10-25 13:18 | XR_ITS ---
FINAL REPORT CLINICAL HISTORY: hip pain FINDINGS: 2 views of the left hip and an AP pelvis were obtained. There is no acute fracture or dislocation. There are mild degenerative changes. There is spurring and degenerative change of the SI joints, left greater than right. There are no soft tissue abnormalities. IMPRESSION: Degenerative changes as above. Reviewed, Interpreted and Dictated by Ramo Apodaca III, MD Transcribed by Yaakov Solitario Authenticated by Ramo Apodaca III, MD on 10/25/2021 02:38:50 PM [facility]
--- NOTE | 2021-10-25 13:18 | XR_ITS ---
FINAL REPORT CLINICAL HISTORY: hip pain FINDINGS: 2 views of the right hip were obtained. There is no acute fracture or dislocation. There are mild degenerative changes. There are no soft tissue abnormalities. IMPRESSION: Mild degenerative change. Reviewed, Interpreted and Dictated by Ramo Apodaca III, MD Transcribed by Yaakov Solitario Authenticated by Ramo Apodaca III, MD on 10/25/2021 02:38:[address] [facility]
== END ==
PROVIDERS: PCP Family Medicine; Visit Provider Orthopaedic Surgery
DX: M25.552 Pain in left hip (principal); M25.551 Pain in right hip
CPT/HCPCS: 73502

== ENCOUNTER 2021-11-17 10:06 | Day surgery (SDC) | payer OTHER, SELFPAY ==
[2021-11-17 10:15] VITALS: BP 146/85; PULSE 84; RESP 20; TEMP 36.6; O2SAT 95; BMI 32.0
[2021-11-17 10:17] VITALS: BP 128/80; BP 131/80; PULSE 75; RESP 18; O2SAT 97
--- NOTE | 2021-11-17 10:23 | P.PCN_ITS ---
- Procedure Date: 11/17/21 Time: 10:23 Anesthesiologist:: Manjit Cooper CRNA Complications:: None Pre-procedure Diagnosis:: Right sacroiliitis. Right trochanteric bursitis. Post-procedure Diagnosis:: Same Indications for Procedure:: Pleasant 46-year-old female who presents today for right trochanteric bursa injection as well as right SI joint injection. Patient has had these injections in the past with significant improvement. Procedure Details:: Procedure: Right sacroliliac joint injection under fluoroscopy Informed consent was obtained and the risk and benefits of the procedure were explained to the patient.~ The patient was taken to the procedure room and noninvasive monitors were placed including noninvasive blood pressure cuff and pulse oximeter.~ The patient was placed prone on the procedure table.~ The~ right hip was cleansed using Betadine as a cleansing solution.~ C-arm fluorosocpy was used to view the right SI joint.~ The skin and subcutaneous tissues were anesthetized using Lidocaine 1.5% and a 25-gauge needle.~ After this, a 22-gauge spinal needle was inserted under fluoroscopic guidance into the inferior aspect of the right SI joint.~ Omnipaque dye was injected and a good spread was seen throughout the joint.~ After this, approximately 5 mL of bupivacaine 0.25% and Depo-Medrol 40 mg was incrementally injected into the sacr oiliac joint.~ The patient tolerated the procedure well with no complications.~ The patient was observed in the Pain Clinic, then discharged home neurologically intact.~ Procedure: Right trochanteric bursa injection under fluoroscopy We then moved to the right trochanteric bursa.~ C-arm fluoroscopy was used to view the left greater trochanter.~ The skin and subcutaneous tissues overlying the right greater trochanter were anesthetized using lidocaine, 1.5% and a 25- gauge needle.~ After this, a 22-gauge spinal needle was inserted and advanced until it contacted the right greater trochanter.~ Dye was injected and good spread was seen throughout the right trochanteric bursa. After this, approximately 5 mL of bupivacaine, 0.25% and Depo-Medrol, 40 mg was incrementally injected into the right right trochanteric bursa.~ The patient tolerated the procedure well with no complications. Plan and Disposition:: Patient was discharged without incident.
[2021-11-17 10:31] VITALS: BP 121/73; PULSE 72; RESP 20; O2SAT 97
== END 2021-11-17 10:32 | disposition home or self-care (01) ==
LOC: SC.PAINP 10:07
PROVIDERS: PCP Family Medicine; Visit Provider Nurse Anesthetist, Certified Registered
DX: M46.1 Sacroiliitis, not elsewhere classified (principal); M70.61 Trochanteric bursitis, right hip
CPT/HCPCS: 20610; 27096; 77002; G0260; J1040

== ENCOUNTER → 2021-12-07 09:31 | Outpatient (POV) | payer OTHER, SELFPAY ==
[2021-12-07 09:41] VITALS: BP 125/76; PULSE 74; RESP 20; TEMP 36.6; O2SAT 99; BMI 36.6
--- NOTE | 2021-12-07 10:30 | HMH.PAINSOAP ---
[facility] Pain Management SOAP Note Subjective:: Patient is a pleasant 46-year-old female who presents today for follow-up after a right SI injection and right greater trochanteric bursa injection on November 17, 2021. Patient is currently being treated for bilateral sacroiliitis, right-sided greater trochanteric bursitis, upper back pain, low back pain. After her injection, patient states that she had minimal relief of symptoms and had some bruising around the injection sites for a few days. This has resolved. She states that her pain increased after the injection. We previously did a bilateral SI injection with this patient and she had 80 to 90% relief for 2 to 3 days. At that time, patient states that she was hesitant to try a repeat injection because she only had very temporary relief. I had started her on oral steroids for about a week. She states that this helped her pain the most. We also referred her to orthopedics for further evaluation of her bilateral hip pain. She was told that there is nothing to do at this time. She wants to get a second opinion from another orthopedic group. Today, she is complaining of bilateral hip pain, right worse than the left. She does have radiating pain to bilateral lower extremities. MRI of her lumbar spine shows some degenerative disc changes and anterior listhesis. She has not tried any lumbar epidural steroid injection. For pain, patient states that she cannot take any anti-inflammatory medications because of her GI issues. She does take Tylenol from time to time. She is very hesitant to try any opioid medications because of her family history. She rates her pain today as 6 out of 10. She is not on any scheduled medication. Kirt [id number] with an active morphine equivalent of 0. Review of Systems: General: No recent weight changes, no fever, no sleep disturbances Respiratory: No cough, no shortness of air, no recurring pulmonary infections Cardiovascular/peripheral vascular: No chest pain, no palpitations, no edema, no shortness of breath Gastrointestinal: No new onset incontinence, normal bowel movements reported Genitourinary: No new onset incontinence Musculoskeletal: Upper back pain, low back pain, bilateral hip pain Psychiatric: [Normal mood/affect] Neurological: [Denies weakness in extremities], [denies balance issues] Objective:: Physical Exam: General: Alert and oriented x3, no acute distress, pleasant and cooperative Lungs: Respirations even and unlabored, symmetrical chest expansion Eyes: PERRL Musculoskeletal: Flexion and extension of lumbar [spine] somewhat guarded secondary to pain, [antalgic gait noted]; tender to palpation around the upper thoracic spine and lumbar area. She also has point of tenderness on bilateral SI and right-sided greater trochanteric bursa. Neurological: Speech clear, no gross sensory deficit Assessment:: Sacroiliitis, greater trochanteric bursitis, low back pain, upper back pain Plan:: Patient had minimal relief after the right SI and right greater trochanteric bursa injections. Patient does not want to proceed with any other injective therapy at this time. I will start this patient on tramadol 50 mg twice a day #30 tabs. Patient presents today with multiple areas of pain. She states that her is worried that she might have lupus or other rheumatological issues. She wants to check her rheumatology labs today. We will check her DORIAN, CRP, ESR, anti-CCP and rheumatoid factor today. I discussed with her that if her rheumatology labs are positive, we will refer her to rheumatology. She does work in [place], so we will refer her to a press leader there if ever. Patient is also wanting a second opinion in regards to her bilateral hip pain. We will refer this patient to [facility] orthopedics per the patient's request. Follow up in one month. Patient has been instructed to contact the clinic with any concerns before the next appointment. Dr. Bobo has rev
[2021-12-07 10:58] LABS: Erythrocyte Sedimentation Rate 9 mm/hr (0-20)
[2021-12-07 11:36] LABS: C-Reactive Protein 5.4 mg/L (0-4)
[2021-12-08 12:23] LABS: RA Latex Turbid. <10.0 IU/mL (<14.0)
[2021-12-08 19:09] LABS: Antinuclear Antibodies, IFA Negative (.)
[2021-12-09 02:08] LABS: Anti-Cyclic Citrullinated Pept 4 units (0-19)
== END ==
PROVIDERS: Visit Provider Student in an Organized Health Care Education/Training Program
DX: M46.1 Sacroiliitis, not elsewhere classified (principal); M70.61 Trochanteric bursitis, right hip; M51.16 Intervertebral disc disorders with radiculopathy, lumbar region; Z88.2 Allergy status to sulfonamides
CPT/HCPCS: 36415; 85651; 86038; 86140; 86200; 86431; 99212; G0463